=== PATIENT | female | born 1990 | race Hispanic/Latino ===

== ENCOUNTER 2018-05-15 09:30 | Emergency (ER) | payer OTHER ==
[~2018-05-15] VITALS: Ht 170.2 cm; Wt 107.0 kg
[2018-05-15 10:27] LABS: ABSOLUTE BASOPHIL COUNT 0 /CUMM (0.0-0.2); ABSOLUTE EOSINOPHIL COUNT 0.1 /CUMM (0.0-0.7); ABSOLUTE GRANULOCYTE CT 2.2 /CUMM (1.4-6.5); ABSOLUTE LYMPH COUNT 1.6 /CUMM (1.2-3.4); ABSOLUTE MONOCYTE COUNT 0.3 /CUMM (0.10-0.60); BASOPHIL % 0.4 % (0.0-2.0); EOSINOPHIL % 2.4 % (0-5); GRANULOCYTE % 51.9 % (42.2-75.2); HEMATOCRIT 39.7 % (37-47); MEAN CORPUSCULAR HGB CONC 34.1 G/DL (33.0-37.0); MEAN PLATELET VOLUME 7.5 FL (7.4-10.4); PLATELET COUNT 265 /CUMM (130-400); RBC DISTRIBUTION WIDTH 13.1 % (11.5-14.5); RED BLOOD CELL CT 4.67 /CUMM (4.20-5.40); WHITE BLOOD CELL COUNT 4.2 /CUMM (4.8-10.8)
[2018-05-15 11:46] VITALS: BP 128/99
[2018-05-15] MEDS ORDERED: FLONASE ALLERG9.9 ML NASB (12:03)
[2018-05-15] MEDS ORDERED: CLARITIN10 M3 PO (12:03)
[2018-05-15] MEDS ORDERED: PATADAY2.5 ML OPH (12:03)
--- NOTE | 2018-05-15 12:04 | ED GENERAL ADULT ---
History of Present Illness General Chief Complaint: General Adult Stated Complaint: PT STATES 'I HAVE MOLD POISONING/DIZZY,JONAS,RASH" Source: patient Exam Limitations: no limitations Vital Signs & Intake/Output Vital Signs & Intake/Output Vital Signs Date Time Temp Pulse Resp B/P B/P Pulse O2 O2 Flow FiO2 Mean Ox Delivery Rate 05/15 1253 Room Air 05/15 1146 80 128/99 05/15 0936 97.1 90 16 132/87 98 Room Air Allergies Coded Allergies: No Known Allergies (05/15/18) Reconcile Medications Albuterol Sulfate (Proair Hfa) 90 MCG HFA.AER.AD 2 PUF INH Q4-6 PRN PRN COUGH/ WHEEZING Fluticasone Propionate (Flonase Allergy Relief) 50 MCG/ACTUATION SPRAY.SUSP 1 SPRAY NASB ONCE DAILY PRN CONGESTION/ALLERGY Loratadine (Claritin) 10 MG CAPSULE 1 CAP PO ONCE DAILY PRN ALLERGY Olopatadine HCl (Pataday) 0.2 % DROPS 1 GTT OPH DAILY PRN EYYE IRRITATION Triage Note: PT STATES THAT SHE HAS BEEN LIVING IN HER APARTMENT FOR 2 YEARS AND THERE IS A MOLD PROBLEM, HOUSE IS BEING SOLD AND SHE IS MOVING AND THAT SHE WOULD LIKE TO BE TESTED FOR DIFFERENT TYPES OF MOLD DUE TO SHE HAS BEEN DIAGNOSED WITH FIBROMYALGIA AND OTHER PROBLEMS SINCE LIVING THERE. DENIES SOB, O2 SAT 98 % ON RA Triage Nurses Notes Reviewed? yes Onset: Abrupt Duration: week(s): (6MONTHS-1 YEAR), continues in ED, getting worse Timing: single episode today Injury Environment: home Severity: mild, moderate : No Patient currently breastfeeds: No HPI: 27-year-old female history of fibromyalgia presents for evaluation of fatigue, weakness, congestion, sore throat and itchy eyes. Patient reports she recently found out that she has a lot of mold in her apartment. She lives in a basement. She states since she moved into department 2 years ago she has had worsening health problems. She reports she frequently will get sick she frequently feels weak and fatigued. She reports that she frequently will also have itchy eyes with watery eyes and nasal congestion and a sore throat. She denies any medicine for this. She's not been tested for mold allergies. She denies any chest pain or shortness of breath fevers nausea vomiting diarrhea or abdominal pain or urinary symptoms. No rashes. (Ghanshyam Lepe) Past History Travel History Traveled to [place] past 21 day No Medical History Any Pertinent Medical History? see below for history Neurological: NONE EENT: NONE Cardiovascular: NONE Respiratory: asthma Hepatic: NONE Renal: NONE Musculoskeletal: fibromyalgia Endocrine: Jeremy's thyroiditis Cancer(s): NONE OUTPATIENT CODER/Reproductive: NONE Surgical History Surgical History: non-contributory Psychosocial History What is your primary language Bangladeshi Tobacco Use: Never used ETOH Use: denies use Illicit Drug Use: denies illicit drug use Family History Hx Contributory? No (Ghanshyam Lepe) Review of Systems Review of Systems Constitutional: Reports: malaise, weakness. EENTM: Reports: eye tearing, nasal congestion, throat pain. Respiratory: Reports: no symptoms. Cardiovascular: Reports: no symptoms. GI: Reports: no symptoms. Genitourinary: Reports: no symptoms. Musculoskeletal: Reports: no symptoms. Skin: Reports: no symptoms. Neurological/Psychological: Reports: no symptoms. Hematologic/Endocrine: Reports: no symptoms. Immunologic/Allergic: Reports: no symptoms. All Other Systems: Reviewed and Negative (Ghanshyam Lepe) Physical Exam Physical Exam General Appearance: well developed/nourished, no apparent distress, alert, awake Head: atraumatic, normal appearance Eyes: Bilateral: normal appearance, PERRL, EOMI. Ears, Nose, Throat: normal pharynx, normal ENT inspection, hearing grossly normal Neck: normal inspection, supple, full range of motion Respiratory: normal breath sounds, chest non-tender, no respiratory distress, lungs clear Cardiovascular: regular rate/rhythm, normal peripheral pulses Peripheral Pulses: 2+ radial (R), 2+ radial (L) Gastrointestinal: soft, non-tender Back: normal inspection, normal range of motion, no vertebral tenderness Extremities: normal inspection, normal range of motion, no edema Neurologic/Psych: no motor/sensory deficits, awake, alert, oriented x 3, normal gait, normal mood/affect Skin: intact, normal color, warm/dry Lymphatic: no anterior cervical joe Core Measures ACS in differential dx? No CVA/TIA Diagnosis: No Sepsis Present: No Sepsis Focused Exam Completed? No (Ghanshyam Lepe) Progress Differential Diagnoses I considered the following diagnoses in my evaluation of the patient: [Allergic rhinitis, mold allergy, viral syndrome, fibromyalgia, electrolyte abnormality, dehydration] Plan of Care: Orders Procedure Date/time Status URINE 05/15 934 Complete URINALYSIS 05/15 934 Complete TROPONIN LEVEL 05/15 934 Complete COMPREHENSIVE METABOLIC PANEL 05/15 934 Complete CBC WITHOUT DIFFERENTIAL 05/15 934 Complete Laboratory Tests 05/15/18 1120: Urine Color YEL, Urine Clarity CLEAR, Urine pH 6.0, Ur Specific [place] 1.025, Urine Protein NEG, Urine Ketones >=80, Urine Nitrite NEG, Urine Bilirubin NEG, Urine Urobilinogen 0.2, Ur Leukocyte Esterase NEG, Ur Microscopic SEDIMENT EXAMINED, Urine RBC 25-50 H, Ur Epithelial Cells FEW, Urine Bacteria RARE H, Urine Hemoglobin LARGE H, Urine Glucose NEG, Urine Test NEGATIVE 05/15/18 1013: Anion Gap 7, Estimated GFR > 60, BUN/Creatinine Ratio 16.7, Glucose 82, Calcium 9.6, Total Bilirubin 1.1, AST 24, ALT 32, Alkaline Phosphatase 54, Troponin I < 0.01, Total Protein 7.3, Albumin 4.1, Globulin 3.2, Albumin/Globulin Ratio 1.3, CBC w Diff NO MAN DIFF REQ, RBC 4.67, MCV 85.0, MCH 29.0, MCHC 34.1, RDW 13.1, MPV 7.5, Gran % 51.9, Lymphocytes % 38.0, Monocytes % 7.3, Eosinophils % 2.4, Basophils % 0.4, Absolute Granulocytes 2.2, Absolute Lymphocytes 1.6, Absolute Monocytes 0.3, Absolute Eosinophils 0.1, Absolute Basophils 0 Disposition is here for evaluation of multiple complaints including weakness fatigue itchy watery eyes congestion and sore throat. She recently found that she has mold in her apartment she thinks this is something do with it. Physical exam is within normal limits. Vital signs are stable. Blood work was obtained and is within normal limits. Patient was given prescriptions for antihistamine eyedrops will antihistamines and Flonase. Advised her to get a dehumidifier consider moving out of her apartment. Have professional's removal mold. Follow -up with primary care doctor or band straightener for further testing and treatment. Discussed return precautions patient agrees to plan Initial ED EKG: none (Ghanshyam Lepe) Departure Departure Disposition: HOME OR SELF CARE Condition: Stable Clinical Impression Primary Impression: Allergy to mold Referrals: Samuel Gallagher MD (PCP/Family) Additional Instructions: Take loratadine once daily. Flonase for nasal congestion or sore throat. Pataday eyedrops for eye irritation. Get a dehumidifier for your basement. Make a follow-up APPT with your doctor OR RETAIL INVENTORY CONTROL CLERK for allergy testing. Monitor your symptoms return with any concerns. Departure Forms: Customer Survey General Discharge Information Prescriptions: Current Visit Scripts Loratadine (Claritin) 1 CAP PO ONCE DAILY PRN ALLERGY #30 CAP Fluticasone Propionate (Flonase Allergy Relief) 1 SPRAY NASB ONCE DAILY PRN CONGESTION/ALLERGY #1 BOT Olopatadine HCl (Pataday) 1 GTT OPH DAILY PRN EYYE IRRITATION #1 BOT Albuterol Sulfate (Proair Hfa) 2 PUF INH Q4-6 PRN PRN COUGH/WHEEZING #1 INHAL (Ghanshyam Lepe) PA/HEEL CEMENTER MACHINE Co-Sign Statement Statement: ED Attending supervision documentation- [] I saw and evaluated the patient. I have also reviewed all the pertinent lab results and diagnostic results. I agree with the findings and the plan of care as documented in the PA's/HEEL CEMENTER MACHINE's documentation. [x] I have reviewed the ED Record and agree with the PA's/HEEL CEMENTER MACHINE's documentation. [] Additions or exceptions (if any) to the PAs/HEEL CEMENTER MACHINE's note and plan are summarized below: [] (Diaz Whiteside DO) Critical Care Note Critical Care Note Critical Care Time: non-applicable (Ghanshyam Lepe)
[2018-05-15] MEDS ORDERED: PROAIR HFA8.5 GM INH (12:40)
== END 2018-05-15 12:53 ==
LOC: ERH 09:30
PROVIDERS: Physician Assistant Medical
DX: J30.89 Other allergic rhinitis (principal); R53.1 Weakness; J02.9 Acute pharyngitis, unspecified
CPT/HCPCS: 81001; 81025